=== PATIENT | female | born 1995 | race Caucasian/White ===

== ENCOUNTER 2017-06-22 11:12 | Day surgery (SDC) | payer OTHER ==
[~2017-06-22] VITALS: Ht 162.6 cm; Wt 56.7 kg
[~2017-06-22 11:12] MED LIST: HYDROCODON-ACE1 EAC7 PO; LEXAPRO20 MG PO; LORYNA 3 MG-0.1 EACH PO; SENEXON8.6 MG PO
[2017-06-22 11:45] VITALS: BP 122/68
[2017-06-22 17:07] VITALS: BP 114/59
[2017-06-22 18:07] VITALS: BP 101/53
== END 2017-06-22 18:39 | disposition home or self-care (01) ==
LOC: SDC 11:12
DX: S82.872A Displaced pilon fracture of left tibia, initial encounter for closed fracture (principal); S82.402A Unspecified fracture of shaft of left fibula, initial encounter for closed fracture; F41.9 Anxiety disorder, unspecified; W22.09XA Striking against other stationary object, initial encounter; Y93.23 Activity, snow (alpine) (downhill) skiing, snowboarding, sledding, tobogganing and snow tubing; Y92.89 Other specified places as the place of occurrence of the external cause; Y99.8 Other external cause status
CPT/HCPCS: 73600; 76000; C1713; J0131; J0330; J0690; J1100; J1170; J2250; J2405; J2765; J2795; J3010; Q0175